=== PATIENT | female | born 1950 ===

== ENCOUNTER 2020-09-13 11:30 | Inpatient (IN) | payer OTHER ==
[~2020-09-13] VITALS: Ht 152.4 cm; Wt 70.3 kg
[2020-09-13] MEDS ORDERED: SYNTHROID150 MCG PO (13:49)
[2020-09-13] MEDS ORDERED: TRULICITY0.75 MG/0. (13:50)
[2020-09-13] MEDS ORDERED: JARDIANCE25 MG PO (13:50)
[2020-09-13] MEDS ORDERED: TOUJEO SOL300 UNIT/1 (13:50)
[2020-09-13] MEDS ORDERED: ARIMIDEX PO (13:51)
[2020-09-13] MEDS ORDERED: SIMVASTATIN20 MG PO (13:52)
[2020-09-13] MEDS ORDERED: PROTONIX40 MG PO (13:52)
[2020-09-13] MEDS ORDERED: MEMANTINE HCL10 MG PO (13:52)
[2020-09-17] MEDS ORDERED: ANASTROZOLE1 MG PO (09:54)
== END 2020-09-18 11:18 | disposition home or self-care (01) | DRG 743 ==
LOC: ADM 11:30 → EDSTATUS 11:30 → OB/GYN 09-15 11:30 → O/R 09-16 07:17 → OB/GYN 09-16 11:15
PROVIDERS: ADMIT Specialist; ATTEND Specialist
PROC: 0UT2FZZ Resection of Bilateral Ovaries, Via Natural or Artificial Opening With Percutaneous Endoscopic Assistance (ICD-10-PCS; 2020-09-16)
PROC: 0UT7FZZ Resection of Bilateral Fallopian Tubes, Via Natural or Artificial Opening With Percutaneous Endoscopic Assistance (ICD-10-PCS; 2020-09-16)
PROC: 0UT9FZZ Resection of Uterus, Via Natural or Artificial Opening With Percutaneous Endoscopic Assistance (ICD-10-PCS; principal; 2020-09-16 11:15)
DX: N83.02 Follicular cyst of left ovary (principal); N83.01 Follicular cyst of right ovary; N85.8 Other specified noninflammatory disorders of uterus